=== PATIENT | male | born 1985 | race Caucasian/White ===

== ENCOUNTER 2018-12-11 21:22 | Emergency (ER) | payer OTHER ==
[~2018-12-11] VITALS: Ht 177.8 cm; Wt 81.8 kg
[2018-12-11] MEDS ORDERED: DiphenhydrAMINE HCL 25 MG CAPSULE PO ONE (22:15)
[2018-12-11] MEDS ORDERED: PredniSONE 20 MG TABLET PO ONE (22:15)
[2018-12-11 22:49] VITALS: BP 137/87
== END 2018-12-11 23:20 | disposition home or self-care (01) ==
LOC: EMS 21:24
DX: T78.49XA Other allergy, initial encounter (principal); R21 Rash and other nonspecific skin eruption; X58.XXXA Exposure to other specified factors, initial encounter
CPT/HCPCS: 99283; J7512